=== PATIENT | male | born 1960 | race Caucasian/White ===

== ENCOUNTER 2017-11-09 07:04 | Emergency (ER) | payer OTHER, BC ==
[~2017-11-09] VITALS: Ht 182.9 cm; Wt 97.5 kg
[~2017-11-09 07:04] MED LIST: ASP81TEC PO; ATOR40TA PO; CITA20TA4 PO; HYDR-34 PO; LISI10TA PO; METFOR850T PO; METO50TA7 PO; METR500T PO; MULT-963 PO; NF-MEXI150 PO; SULF1TAB38 PO
--- OUTSIDE RECORDS SUMMARY | 2017-11-09 07:11 | XMS REPORT | Clinical Summary ---
Author Author [facility] Organization [facility] Address Unknown Phone Unavailable Care Team Providers Care Trailer Mechanic Name Role Phone Unverified, Unverified Md PCP Unavailable Source Comments Some departments are not documenting in the electronic medical record. If you do not see the information that you expected, contact Release of Information in the Health Information Management department at [phone] for further assistance in locating additional records.[facility] Allergies No Known Allergies Current Medications Prescription Sig. Disp. Refills Start End Date Status Date aspirin EC 81 mg tablet Take 81 mg by mouth Active daily. atorvastatin (LIPITOR) 40 Take 40 mg by mouth at Active mg tablet bedtime daily. citalopram (CELEXA) 20 mg Take 20 mg by mouth at Active tablet bedtime daily. lisinopril (PRINIVIL; Take 10 mg by mouth Active ZESTRIL) 10 mg tablet daily. vitamins, multiple cap Take 1 Cap by mouth Active daily. metFORMIN (GLUCOPHAGE) Take 850 mg by mouth Active 850 mg tablet twice daily with meals. metoprolol XL (TOPROL XL) Take 50 mg by mouth twice Active 50 mg tablet daily. mexiletine (MEXITIL) 200 Take 1 Cap by mouth three 90 Cap 0 05/27/19 Active mg capsuleIndications: times daily. Need office 16 Palpitations visit for additional refills. Active Problems Problem Noted Date JULIAN (obstructive sleep apnea) 09/20/2012 HTN (hypertension) 09/20/2012 Overview: 07/20/12 Myocardial stress test: fair exercise tolerance; a total of 7 minutes and 51 seconds on the standard Piter Protocol at a total of 10.1 METs; achieving 88% of max predicted HR; frequent PVC's and ventricular couplets were seen during exercise; nondiagnostic EKG changes with exercise which returned to baseline during recovery; diaphragmatic attenuation w/mild decreased uptake involving the whole inferior wall; no significant ischemia noted; prominent LV with diffuse LV hypokinesia and calculated EF of 44% 08/31/12 Cardiac Cath: severe CM with estimated EF of 30% by LV gram; normal coronary arteries with very small nondominant right coronary system Hyperlipemia 09/20/2012 DM (diabetes mellitus) ([facility]) 09/20/2012 Tobacco user 09/20/2012 Palpitations 09/19/2012 Overview: 06/21/12 Holter: Pt was monitored for 24 hrs and 0 minutes. There was a total of 111,629 beats with an avg rate of 77; max BPM was 105 w/minimum BPM 58. There were 0 mins < 50bpm and 0 mins > 120bpm; wide beats totaled 42 representing 0.0% of all beats; wide pairs 0; wide runs: 0; 2 second pause: 0; KATIE runs: 0; total early KATIE were 14984 representing 13.2% of all beats; total beats not analyzed: 174 representing 0.2% of the study. 06/22/12 Holter: Pt was monitored for a total of 47 hrs and 40 minutes; there were a total of 219,417 beats with an avg rate of 77; mx BPM was 111 with a minimum BPM of 58; O mins < 50 and 0 mins > 120 BPM; wide beats totaled 68 representing 0.0% of all beats; 0 wide pairs or runs; 0 pauses; KATIE runs totaled 7; total early KATIE were 59172 representing 12.5% of all beats; total beats not analyzed: 541 representing 0.2% of the study. 09/01/12 Holter: Pt was monitored for 23 hrs and 55 minutes. There were a total of 96,939beats with an avg rate of 70; max BPM was 89, with a minimum BPM of 59; there were 0 mins < 50 bpm and 0 mins > 120 bpm; wide beats totaled 30,030 representing 31% of all beats; wide pairs totaled 52; wide runs 0; pauses 0; KATIE runs totaled 1; total early KATIE were 709 representing 0.7% of all beats; total beats not analyzed was 219 representing < 1% of the study. Cardiomyopathy ([facility]) 09/15/2012 Overview: 03/13/05 Echo: Normal LV size; systolic function is in the lower normal limit w/estimated EF of 50%; mild MR, mild aortic regurgitation; estimated PAP of 20mmHg; frequent PVC's which affected the overall quality of the evaluation of the LV systolic function 07/19/12 Echo: Mild LVH with prominent LV size; systolic function is preserved; estimated EF 50%; LA dilatation (4.4 cm); mild MR and TR; estimated PAP of 15mmHg 09/09/12 Cardiac MRI: 1. Mildly depressed left and right ventricular systolic function with a left ventricular ejection fraction of 49 percent and right ventricular ejection fraction of 39 percent. 2. Moderate left ventricular enlargement. 3. Normal right ventricular size. 4. The thoracic aorta is without evidence of dissection or coarctation. 5. No evidence of delayed hyper-enhancement. 6. On 2009 ARVD Task Force Criteria by MRI there was no evidence of Regional right ventricular akinesia or dyskinesia and the right ventricular ejection fraction is mildly decreased at 39 percent which meets one of the major criteria of the ARVD for the right ventricle. It should be noted that the right ventricular volume indexes were all normal which would be minor criteria. A follow-up MRI in approximately six months to a year can be done to reevaluate right ventricular size and function. It should be noted that the right ventricular ejection fraction is just very mildly depressed at 39 percent but it does meet one of the major criteria for the ARVD Task Force. The other criteria such as right ventricular enlargement or dyskinesia or akinesia were not met. 11/19/15 ECHO [facility]: LA 5.2, EF 45-50%, Normal left ventricular size with mild hypokinesia involving the mid to apical anterior wall, anterior septum. Mild mitral, tricuspid and aortic regurgitation. Estimated pulmonary pressure of 15 mmHg. Family History Medical History Relation Name Comments Other Father heart cath Relation Name Status Comments Father Alive Mother Alive Social History Tobacco Use Types Packs/Day Years Used Date Current Every Day Smoker Cigarettes 0.5 Smokeless Tobacco: Never Used Alcohol Use Drinks/Week oz/Week Comments No Sex Assigned at Date Recorded Not on file Last Filed Vital Signs Vital Sign Reading Time Taken Blood Pressure 148/80 06/21/2013 11:11 AM CDT Pulse 67 06/21/2013 11:11 AM CDT Temperature - - Respiratory Rate - - Oxygen Saturation - - Inhaled Oxygen - - Concentration Weight 102.7 kg (226 lb 6.4 oz) 06/21/2013 11:11 AM CDT Height 185.4 cm (6' 1") 06/21/2013 11:11 AM CDT Body Mass Index 29.87 06/21/2013 11:11 AM CDT Plan of Treatment Health Maintenance Due Date Last Done Comments HEPATITIS C SCREENING 1962 PHYSICAL (COMPREHENSIVE) 1969 EXAM PERTUSSIS VACCINE 1973 HIV SCREENING 1977 TETANUS VACCINE 12/05/1979 COLORECTAL CANCER 2012 SCREENING SHINGLES RECOMBINANT 2012 VACCINE (1 of 2) INFLUENZA VACCINE 12/27/2017 Results Not on filefrom Last 3 Months
--- OUTSIDE RECORDS SUMMARY | 2017-11-09 07:12 | XMS REPORT | Continuity of Care Document ---
Author Author [facility] Organization [facility] Address Unknown Phone Unavailable Allergies Active Description Code Type Severity Reaction Onset Reported/Identified Relationship to Patient Clinical Status Yes No Known Drug Allergies [id number] Drug Allergy Unknown N/A 10/20/2009 Medications There is no data. Problems Date Dx Coded Attending Type Code Diagnosis Diagnosed By 08/31/2012 IVAN POST MD Ot 250.00 DIAB VINAY WO COMPL, TYPE II OR UNSPEC TY 08/31/2012 IVAN POST MD Ot 272.4 HYPERLIPIDEMIA NEC/NOS 08/31/2012 IVAN POST MD Ot 305.1 TOBACCO USE DISORDER 08/31/2012 IVAN POST MD Ot 327.23 OBSTRUCTIVE SLEEP APNEA (ADULT) (PEDIATR 08/31/2012 IVAN POST MD Ot 401.9 HYPERTENSION NOS 08/31/2012 IVAN POST MD Ot 425.4 PRIM CARDIOMYOPATHY NEC 08/31/2012 IVAN POST MD Ot 427.89 CARDIAC DYSRHYTHMIAS NEC 08/31/2012 IVAN POST MD Ot 428.0 CONGESTIVE HEART FAILURE NOS 08/31/2012 IVAN POST MD Ot 428.21 ACUTE SYSTOLIC HEART FAILURE 08/31/2012 IVAN POST MD Ot 794.30 ABN CARDIOVASC STUDY NOS 08/31/2012 IVAN POST MD Ot V58.66 LONG-TERM (CURRENT) USE OF ASPIRIN 08/31/2012 IVAN POST MD Ot V58.69 OTH MED,LT,CURRENT USE 09/19/2012 Ot 785.1 PALPITATIONS 10/15/2012 JESSIE RIOS, SONJA Levy Ot 327.23 OBSTRUCTIVE SLEEP APNEA (ADULT) (PEDIATR 02/09/2014 IVAN POST MD Ot 272.4 02/09/2014 IVAN POST MD Ot 397.0 02/09/2014 IVAN POST MD Ot 401.9 02/09/2014 IVAN POST MD Ot 424.0 02/09/2014 IVAN POST MD Ot 428.0 03/26/2014 Ot 397.0 03/26/2014 Ot 401.9 03/26/2014 Ot 424.0 03/26/2014 Ot 427.69 03/26/2014 Ot 429.3 03/26/2014 Ot 785.1 03/26/2014 Ot 401.9 03/26/2014 Ot 427.69 03/26/2014 Ot 785.1 03/26/2014 IVAN POST MD Ot 427.69 03/26/2014 IVAN POST MD Ot 428.0 03/26/2014 Ot 785.1 03/26/2014 ANI ROMAN Ot 427.31 03/26/2014 ANI ROMAN Ot 428.0 03/26/2014 ANI ROMAN Ot 785.1 03/26/2014 IVAN POST MD Ot 272.4 03/26/2014 IVAN POST MD Ot 397.0 03/26/2014 IVAN POST MD Ot 401.9 03/26/2014 IVAN POST MD Ot 424.0 03/26/2014 IVAN POST MD Ot 428.0 07/06/2014 CATHERINE MARTIN MD Ot 305.1 08/20/2014 Ot 397.0 08/20/2014 Ot 401.9 08/20/2014 Ot 424.0 08/20/2014 Ot 427.69 08/20/2014 Ot 429.3 08/20/2014 Ot 785.1 08/20/2014 Ot 401.9 08/20/2014 Ot 427.69 08/20/2014 Ot 785.1 08/20/2014 IVAN POST MD Ot 427.69 08/20/2014 IVAN POST MD Ot 428.0 08/20/2014 Ot 785.1 08/20/2014 ANI ROMAN Ot 427.31 08/20/2014 ANI ROMAN Ot 428.0 08/20/2014 ANI ROMAN Ot 785.1 08/20/2014 IVAN POST MD Ot 272.4 08/20/2014 IVAN POST MD Ot 397.0 08/20/2014 IVAN POST MD Ot 401.9 08/20/2014 IVAN POST MD Ot 424.0 08/20/2014 IVAN POST MD Ot 428.0 08/20/2014 Ot 789.00 08/20/2014 Ot 786.50 08/20/2014 Ot 789.00 08/20/2014 CATHERINE MARTIN MD Ot 305.1 11/19/2015 Ot 397.0 TRICUSPID VALVE DISEASE 11/19/2015 Ot 401.9 HYPERTENSION NOS 11/19/2015 Ot 424.0 MITRAL VALVE DISORDER 11/19/2015 Ot 427.69 PREMATURE BEATS NEC 11/19/2015 Ot 429.3 CARDIOMEGALY 11/19/2015 Ot 785.1 PALPITATIONS 11/19/2015 Ot 401.9 HYPERTENSION NOS 11/19/2015 Ot 427.69 PREMATURE BEATS NEC 11/19/2015 Ot 785.1 PALPITATIONS 11/19/2015 IVAN POST MD Ot 427.69 PREMATURE BEATS NEC 11/19/2015 IVAN POST MD Ot 428.0 CONGESTIVE HEART FAILURE NOS 11/19/2015 Ot 785.1 PALPITATIONS 11/19/2015 ANI ROMAN Ot 427.31 ATRIAL FIBRILLATION 11/19/2015 ANI ROMAN Ot 428.0 CONGESTIVE HEART FAILURE NOS 11/19/2015 ANI ROMAN Ot 785.1 PALPITATIONS 11/19/2015 IVAN POST MD Ot 272.4 HYPERLIPIDEMIA NEC/NOS 11/19/2015 IVAN POST MD Ot 397.0 TRICUSPID VALVE DISEASE 11/19/2015 IVAN POST MD Ot 401.9 HYPERTENSION NOS 11/19/2015 IVAN POST MD Ot 424.0 MITRAL VALVE DISORDER 11/19/2015 IVAN POST MD Ot 428.0 CONGESTIVE HEART FAILURE NOS 11/19/2015 Ot 789.00 ABDOMINAL PAIN, UNSPECIFIED SITE 11/19/2015 Ot 786.50 CHEST PAIN NOS 11/19/2015 Ot 789.00 ABDOMINAL PAIN, UNSPECIFIED SITE 11/19/2015 CATHERINE MARTIN MD Ot 305.1 TOBACCO USE DISORDER 11/20/2015 IVAN POST MD Ot 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 11/20/2015 IVAN POST MD Ot E78.2 MIXED HYPERLIPIDEMIA 11/20/2015 IVAN POST MD Ot I10 ESSENTIAL (PRIMARY) HYPERTENSION 11/20/2015 IVAN POST MD Ot I49.9 CARDIAC ARRHYTHMIA, UNSPECIFIED 11/20/2015 IVAN POST MD Ot I50.22 CHRONIC SYSTOLIC (CONGESTIVE) HEART FAIL 11/27/2015 Ot 397.0 TRICUSPID VALVE DISEASE 11/27/2015 Ot 401.9 HYPERTENSION NOS 11/27/2015 Ot 424.0 MITRAL VALVE DISORDER 11/27/2015 Ot 427.69 PREMATURE BEATS NEC 11/27/2015 Ot 429.3 CARDIOMEGALY 11/27/2015 Ot 785.1 PALPITATIONS 11/27/2015 Ot 401.9 HYPERTENSION NOS 11/27/2015 Ot 427.69 PREMATURE BEATS NEC 11/27/2015 Ot 785.1 PALPITATIONS 11/27/2015 IVAN POST MD Ot 427.69 PREMATURE BEATS NEC 11/27/2015 IVAN POST MD Ot 428.0 CONGESTIVE HEART FAILURE NOS 11/27/2015 Ot 785.1 PALPITATIONS 11/27/2015 ANI ROMAN Ot 427.31 ATRIAL FIBRILLATION 11/27/2015 ANI ROMAN Ot 428.0 CONGESTIVE HEART FAILURE NOS 11/27/2015 ANI ROMAN Ot 785.1 PALPITATIONS 11/27/2015 IVAN POST MD Ot 272.4 HYPERLIPIDEMIA NEC/NOS 11/27/2015 IVAN POST MD Ot 397.0 TRICUSPID VALVE DISEASE 11/27/2015 IVAN POST MD Ot 401.9 HYPERTENSION NOS 11/27/2015 IVAN POST MD Ot 424.0 MITRAL VALVE DISORDER 11/27/2015 IVAN POST MD Ot 428.0 CONGESTIVE HEART FAILURE NOS 11/27/2015 Ot 789.00 ABDOMINAL PAIN, UNSPECIFIED SITE 11/27/2015 Ot 786.50 CHEST PAIN NOS 11/27/2015 Ot 789.00 ABDOMINAL PAIN, UNSPECIFIED SITE 11/27/2015 MARIO RIOS, CATHERINE Ochoa Ot 305.1 TOBACCO USE DISORDER 11/27/2015 IVAN POST MD Ot 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 11/27/2015 IVAN POST MD Ot E78.2 MIXED HYPERLIPIDEMIA 11/27/2015 IVAN POST MD Ot I10 ESSENTIAL (PRIMARY) HYPERTENSION 11/27/2015 IVAN POST MD Ot I49.9 CARDIAC ARRHYTHMIA, UNSPECIFIED 11/27/2015 IVAN POST MD Ot I50.22 CHRONIC SYSTOLIC (CONGESTIVE) HEART FAIL 11/28/2015 IVAN POST MD Ot 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 11/28/2015 IVAN POST MD Ot E78.2 MIXED HYPERLIPIDEMIA 11/28/2015 IVAN POST MD Ot I10 ESSENTIAL (PRIMARY) HYPERTENSION 11/28/2015 IVAN POST MD Ot I49.9 CARDIAC ARRHYTHMIA, UNSPECIFIED 11/28/2015 IVAN POST MD Ot I50.22 CHRONIC SYSTOLIC (CONGESTIVE) HEART FAIL 12/10/2015 Ot 397.0 TRICUSPID VALVE DISEASE 12/10/2015 Ot 401.9 HYPERTENSION NOS 12/10/2015 Ot 424.0 MITRAL VALVE DISORDER 12/10/2015 Ot 427.69 PREMATURE BEATS NEC 12/10/2015 Ot 429.3 CARDIOMEGALY 12/10/2015 Ot 785.1 PALPITATIONS 12/10/2015 Ot 401.9 HYPERTENSION NOS 12/10/2015 Ot 427.69 PREMATURE BEATS NEC 12/10/2015 Ot 785.1 PALPITATIONS 12/10/2015 IVAN POST MD Ot 427.69 PREMATURE BEATS NEC 12/10/2015 IVAN POST MD Ot 428.0 CONGESTIVE HEART FAILURE NOS 12/10/2015 Ot 785.1 PALPITATIONS 12/10/2015 ANI ROMAN Ot 427.31 ATRIAL FIBRILLATION 12/10/2015 ANI ROMAN Ot 428.0 CONGESTIVE HEART FAILURE NOS 12/10/2015 ANI ROMAN Ot 785.1 PALPITATIONS 12/10/2015 IVAN POST MD Ot 272.4 HYPERLIPIDEMIA NEC/NOS 12/10/2015 IVAN POST MD Ot 397.0 TRICUSPID VALVE DISEASE 12/10/2015 IVAN POST MD Ot 401.9 HYPERTENSION NOS 12/10/2015 IVAN POST MD Ot 424.0 MITRAL VALVE DISORDER 12/10/2015 IVAN POST MD Ot 428.0 CONGESTIVE HEART FAILURE NOS 12/10/2015 Ot 789.00 ABDOMINAL PAIN, UNSPECIFIED SITE 12/10/2015 Ot 786.50 CHEST PAIN NOS 12/10/2015 Ot 789.00 ABDOMINAL PAIN, UNSPECIFIED SITE 12/10/2015 MARIO RIOS, CATHERINE Ochoa Ot 305.1 TOBACCO USE DISORDER 12/10/2015 IVAN POST MD Ot 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 12/10/2015 IVAN POST MD Ot E78.2 MIXED HYPERLIPIDEMIA 12/10/2015 IVAN POST MD Ot I10 ESSENTIAL (PRIMARY) HYPERTENSION 12/10/2015 IVAN POST MD Ot I49.9 CARDIAC ARRHYTHMIA, UNSPECIFIED 12/10/2015 IVAN POST MD Ot I50.22 CHRONIC SYSTOLIC (CONGESTIVE) HEART FAIL 03/13/2016 Ot 397.0 TRICUSPID VALVE DISEASE 03/13/2016 Ot 401.9 HYPERTENSION NOS 03/13/2016 Ot 424.0 MITRAL VALVE DISORDER 03/13/2016 Ot 427.69 PREMATURE BEATS NEC 03/13/2016 Ot 429.3 CARDIOMEGALY 03/13/2016 Ot 785.1 PALPITATIONS 03/13/2016 Ot 401.9 HYPERTENSION NOS 03/13/2016 Ot 427.69 PREMATURE BEATS NEC 03/13/2016 Ot 785.1 PALPITATIONS 03/13/2016 IVAN POST MD Ot 427.69 PREMATURE BEATS NEC 03/13/2016 IVAN POST MD Ot 428.0 CONGESTIVE HEART FAILURE NOS 03/13/2016 Ot 785.1 PALPITATIONS 03/13/2016 ANI ROMAN Ot 427.31 ATRIAL FIBRILLATION 03/13/2016 ANI ROMAN Ot 428.0 CONGESTIVE HEART FAILURE NOS 03/13/2016 ANI ROMAN Ot 785.1 PALPITATIONS 03/13/2016 IVAN POST MD Ot 272.4 HYPERLIPIDEMIA NEC/NOS 03/13/2016 IVAN POST MD Ot 397.0 TRICUSPID VALVE DISEASE 03/13/2016 IVAN POST MD Ot 401.9 HYPERTENSION NOS 03/13/2016 IVAN POST MD Ot 424.0 MITRAL VALVE DISORDER 03/13/2016 IVAN POST MD Ot 428.0 CONGESTIVE HEART FAILURE NOS 03/13/2016 Ot 789.00 ABDOMINAL PAIN, UNSPECIFIED SITE 03/13/2016 Ot 786.50 CHEST PAIN NOS 03/13/2016 Ot 789.00 ABDOMINAL PAIN, UNSPECIFIED SITE 03/13/2016 MARIO RIOS, CATHERINE Ochoa Ot 305.1 TOBACCO USE DISORDER 03/13/2016 IVAN POST MD Ot 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 03/13/2016 IVAN POST MD Ot E78.2 MIXED HYPERLIPIDEMIA 03/13/2016 IVAN POST MD Ot I10 ESSENTIAL (PRIMARY) HYPERTENSION 03/13/2016 IVAN POST MD Ot I49.9 CARDIAC ARRHYTHMIA, UNSPECIFIED 03/13/2016 IVAN POST MD Ot I50.22 CHRONIC SYSTOLIC (CONGESTIVE) HEART FAIL 02/10/2017 Ot 397.0 TRICUSPID VALVE DISEASE 02/10/2017 Ot 401.9 HYPERTENSION NOS 02/10/2017 Ot 424.0 MITRAL VALVE DISORDER 02/10/2017 Ot 427.69 PREMATURE BEATS NEC 02/10/2017 Ot 429.3 CARDIOMEGALY 02/10/2017 Ot 785.1 PALPITATIONS 02/10/2017 Ot 401.9 HYPERTENSION NOS 02/10/2017 Ot 427.69 PREMATURE BEATS NEC 02/10/2017 Ot 785.1 PALPITATIONS 02/10/2017 IVAN POST MD Ot 427.69 PREMATURE BEATS NEC 02/10/2017 IVAN POST MD Ot 428.0 CONGESTIVE HEART FAILURE NOS 02/10/2017 Ot 785.1 PALPITATIONS 02/10/2017 ANI ROMAN Ot 427.31 ATRIAL FIBRILLATION 02/10/2017 ANI ROMAN Ot 428.0 CONGESTIVE HEART FAILURE NOS 02/10/2017 ANI ROMAN Ot 785.1 PALPITATIONS 02/10/2017 IVAN POST MD Ot 272.4 HYPERLIPIDEMIA NEC/NOS 02/10/2017 IVAN POST MD Ot 397.0 TRICUSPID VALVE DISEASE 02/10/2017 IVAN POST MD Ot 401.9 HYPERTENSION NOS 02/10/2017 IVAN POST MD Ot 424.0 MITRAL VALVE DISORDER 02/10/2017 IVAN POST MD Ot 428.0 CONGESTIVE HEART FAILURE NOS 02/10/2017 Ot 789.00 ABDOMINAL PAIN, UNSPECIFIED SITE 02/10/2017 Ot 786.50 CHEST PAIN NOS 02/10/2017 Ot 789.00 ABDOMINAL PAIN, UNSPECIFIED SITE 02/10/2017 MARIO RIOS, CATHERINE Ochoa Ot 305.1 TOBACCO USE DISORDER 02/10/2017 IVAN POST MD Ot 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 02/10/2017 IVAN POST MD Ot E78.2 MIXED HYPERLIPIDEMIA 02/10/2017 IVAN POST MD Ot I10 ESSENTIAL (PRIMARY) HYPERTENSION 02/10/2017 IVAN POST MD Ot I49.9 CARDIAC ARRHYTHMIA, UNSPECIFIED 02/10/2017 IVAN POST MD Ot I50.22 CHRONIC SYSTOLIC (CONGESTIVE) HEART FAIL 04/09/2017 Ot 397.0 TRICUSPID VALVE DISEASE 04/09/2017 Ot 401.9 HYPERTENSION NOS 04/09/2017 Ot 424.0 MITRAL VALVE DISORDER 04/09/2017 Ot 427.69 PREMATURE BEATS NEC 04/09/2017 Ot 429.3 CARDIOMEGALY 04/09/2017 Ot 785.1 PALPITATIONS 04/09/2017 Ot 401.9 HYPERTENSION NOS 04/09/2017 Ot 427.69 PREMATURE BEATS NEC 04/09/2017 Ot 785.1 PALPITATIONS 04/09/2017 IVAN POST MD Ot 427.69 PREMATURE BEATS NEC 04/09/2017 IVAN POST MD Ot 428.0 CONGESTIVE HEART FAILURE NOS 04/09/2017 Ot 785.1 PALPITATIONS 04/09/2017 ANI ROMAN Ot 427.31 ATRIAL FIBRILLATION 04/09/2017 ANI ROMAN Ot 428.0 CONGESTIVE HEART FAILURE NOS 04/09/2017 ANI ROMAN Ot 785.1 PALPITATIONS 04/09/2017 IVAN POST MD Ot 272.4 HYPERLIPIDEMIA NEC/NOS 04/09/2017 IVAN POST MD Ot 397.0 TRICUSPID VALVE DISEASE 04/09/2017 IVAN POST MD Ot 401.9 HYPERTENSION NOS 04/09/2017 IVAN POST MD Ot 424.0 MITRAL VALVE DISORDER 04/09/2017 IVAN POST MD Ot 428.0 CONGESTIVE HEART FAILURE NOS 04/09/2017 Ot 789.00 ABDOMINAL PAIN, UNSPECIFIED SITE 04/09/2017 Ot 786.50 CHEST PAIN NOS 04/09/2017 Ot 789.00 ABDOMINAL PAIN, UNSPECIFIED SITE 04/09/2017 MARIO RIOS, CATHERINE Ochoa Ot 305.1 TOBACCO USE DISORDER 04/09/2017 IVAN POST MD Ot 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 04/09/2017 IVAN POST MD Ot E78.2 MIXED HYPERLIPIDEMIA 04/09/2017 IVAN POST MD Ot I10 ESSENTIAL (PRIMARY) HYPERTENSION 04/09/2017 IVAN POST MD Ot I49.9 CARDIAC ARRHYTHMIA, UNSPECIFIED 04/09/2017 IVAN POST MD Ot I50.22 CHRONIC SYSTOLIC (CONGESTIVE) HEART FAIL 07/23/2017 Ot 397.0 TRICUSPID VALVE DISEASE 07/23/2017 Ot 401.9 HYPERTENSION NOS 07/23/2017 Ot 424.0 MITRAL VALVE DISORDER 07/23/2017 Ot 427.69 PREMATURE BEATS NEC 07/23/2017 Ot 429.3 CARDIOMEGALY 07/23/2017 Ot 785.1 PALPITATIONS 07/23/2017 Ot 401.9 HYPERTENSION NOS 07/23/2017 Ot 427.69 PREMATURE BEATS NEC 07/23/2017 Ot 785.1 PALPITATIONS 07/23/2017 IVAN POST MD Ot 427.69 PREMATURE BEATS NEC 07/23/2017 IVAN POST MD Ot 428.0 CONGESTIVE HEART FAILURE NOS 07/23/2017 Ot 785.1 PALPITATIONS 07/23/2017 ANI ROMAN Ot 427.31 ATRIAL FIBRILLATION 07/23/2017 ANI ROMAN Ot 428.0 CONGESTIVE HEART FAILURE NOS 07/23/2017 ANI ROMAN Ot 785.1 PALPITATIONS 07/23/2017 IVAN POST MD Ot 272.4 HYPERLIPIDEMIA NEC/NOS 07/23/2017 IVAN POST MD Ot 397.0 TRICUSPID VALVE DISEASE 07/23/2017 IVAN POST MD Ot 401.9 HYPERTENSION NOS 07/23/2017 IVAN POST MD Ot 424.0 MITRAL VALVE DISORDER 07/23/2017 IVAN POST MD Ot 428.0 CONGESTIVE HEART FAILURE NOS 07/23/2017 Ot 789.00 ABDOMINAL PAIN, UNSPECIFIED SITE 07/23/2017 Ot 786.50 CHEST PAIN NOS 07/23/2017 Ot 789.00 ABDOMINAL PAIN, UNSPECIFIED SITE 07/23/2017 CATHERINE MARTIN MD Ot 305.1 TOBACCO USE DISORDER 07/23/2017 IVAN POST MD Ot 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 07/23/2017 IVAN POST MD Ot E78.2 MIXED HYPERLIPIDEMIA 07/23/2017 IVAN POST MD Ot I10 ESSENTIAL (PRIMARY) HYPERTENSION 07/23/2017 IVAN POST MD Ot I49.9 CARDIAC ARRHYTHMIA, UNSPECIFIED 07/23/2017 IVAN POST MD Ot I50.22 CHRONIC SYSTOLIC (CONGESTIVE) HEART FAIL Procedures There is no data. Results There is no data. Encounters ACCT No. Visit Date/Time Discharge Status Pt. Type Provider Facility Loc./Unit Complaint [id number] 11/19/2015 10:43:00 11/19/2015 23:59:59 CLS Outpatient IVAN POST MD [facility] CARD CHF,HTN,HLP, PALPITATIONS [id number] 06/22/2014 13:51:00 06/22/2014 23:59:59 CLS Outpatient CATHERINE MARTIN MD [facility] RT TOBACCOISM, [id number] 01/26/2014 08:48:00 01/26/2014 23:59:59 CLS Outpatient IVAN POST MD [facility] CARD CHF,COPD,HTN,HLP [id number] 10/24/2012 10:00:00 10/24/2012 23:59:59 CLS Outpatient ANI ROMAN [facility] CARD AFIB, PALPITATIONS [id number] 10/14/2012 20:13:00 10/15/2012 05:10:00 DIS Outpatient SONJA ROMAN MD [facility] SLEEP JULIAN [id number] 09/01/2012 12:59:00 09/01/2012 23:59:59 CLS Outpatient IVAN POST MD [facility] CARD PVC,CHF [id number] 08/31/2012 11:38:00 08/31/2012 19:45:00 DIS Outpatient IVAN POST MD [facility] CHEST PAIN,PALPITATIONS, HTN,HLP,TOBACCOISM, [id number] 05/23/2014 08:11:00 Document Registration [id number] 05/22/2014 15:30:00 Document Registration [id number] 09/20/2012 08:00:00 Document Registration [id number] 07/20/2012 11:41:00 Document Registration [id number] 07/19/2012 08:52:00 Document Registration [id number] 06/21/2012 08:27:00 Document Registration
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
[2017-11-09] MEDS ORDERED: CYCL10TA9 PO (08:23)
[2017-11-09 08:55] VITALS: BP 135/76
== END 2017-11-09 08:55 | disposition home or self-care (01) ==
LOC: EDUNIT# 07:04 → ER 07:06
DX: S39.012A Strain of muscle, fascia and tendon of lower back, initial encounter (principal); S16.1XXA Strain of muscle, fascia and tendon at neck level, initial encounter; S80.02XA Contusion of left knee, initial encounter; I10 Essential (primary) hypertension; E11.9 Type 2 diabetes mellitus without complications; R40.2142 Coma scale, eyes open, spontaneous, at arrival to emergency department; R40.2252 Coma scale, best verbal response, oriented, at arrival to emergency department; R40.2362 Coma scale, best motor response, obeys commands, at arrival to emergency department; F17.210 Nicotine dependence, cigarettes, uncomplicated; Z79.82 Long term (current) use of aspirin; Z79.84 Long term (current) use of oral hypoglycemic drugs; X50.0XXA Overexertion from strenuous movement or load, initial encounter
CPT/HCPCS: 99282

== ENCOUNTER → 2017-12-10 | Outpatient (CLI) | payer BC, OTHER ==
[~2017-12-10] MED LIST changes: +CYCL10TA9 PO; +IOHEXOL 350 MG/ML 100 ML (OMNIPAQUE 350) VIAL IV ONE; +NS 250 ML (IVPB) BAG IV ONE
[2017-12-10 09:04] LABS: BUN/CREATININE RATIO 14; CREATININE SERUM 1.02 MG/DL (0.60-1.30); GFR ESTIMATED > 60
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
== END ==
LOC: RAD 08:31
PROVIDERS: ATTEND Internal Medicine
DX: R51 Headache (principal); R42 Dizziness and giddiness; V89.2XXA Person injured in unspecified motor-vehicle accident, traffic, initial encounter
CPT/HCPCS: 36415; 70470; 82565; 84520

== ENCOUNTER → 2017-12-23 | Outpatient (CLI) | payer OTHER, BC ==
[~2017-12-23] MED LIST changes: -IOHEXOL 350 MG/ML 100 ML (OMNIPAQUE 350) VIAL IV ONE; -NS 250 ML (IVPB) BAG IV ONE
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
== END ==
LOC: RAD 14:14
PROVIDERS: ATTEND Nurse Practitioner
DX: M46.86 Other specified inflammatory spondylopathies, lumbar region (principal); M47.814 Spondylosis without myelopathy or radiculopathy, thoracic region; V89.2XXA Person injured in unspecified motor-vehicle accident, traffic, initial encounter
CPT/HCPCS: 72070; 72100

== ENCOUNTER → 2018-08-01 | Outpatient (CLI) | payer BC, OTHER ==
[~2018-08-01] VITALS: Ht 182.9 cm; Wt 96.2 kg
[~2018-08-01] MED LIST changes: +CATHETER FLUSH 10 ML SYR IV PRN; +REGADENOSON 0.4 MG/5 ML SYR (LEXISCAN) IV ONE
--- NOTE | 2018-08-01 12:55 | STRESS TEST ---
DATE OF SERVICE: 08/01/2018 LEXISCAN MYOVIEW STRESS TEST REPORT REFERRING PHYSICIAN: Dr. Soares. Baseline heart rate is 62. Baseline blood pressure 135/85. Baseline EKG is sinus rhythm with no ischemic changes. In summary, the patient received 10.95 mCi of technetium-99 Myoview and the resting images were obtained. Then, the patient received 0.4 mg of Lexiscan followed by 31.8 mCi of technetium-99 Myoview. Throughout the test, there were no EKG changes. The resting and stress images were reviewed and compared in the short axis, horizontal long axis, and vertical long axis views. Review of the images showed good radiotracer uptake with no significant ischemia or infarction on SPECT images. On the gated images, the left ventricle appeared to be prominent with diffuse left ventricular hypokinesia, calculated ejection fraction 41%. CONCLUSION: 1. The patient tolerated Lexiscan well. 2. No ischemia or infarction on SPECT images. 3. Prominent left ventricle with diffuse left ventricular hypokinesia with calculated ejection fraction 41%. Job ID: [id number] DocumentID: [id number] Dictated Date: 08/01/2018 11:27:33 Fish Flipper Date: 08/01/2018 12:54:45 Dictated By: IVAN POST MD
== END ==
LOC: CARD 07:04
PROVIDERS: ATTEND Physician Assistant
DX: I10 Essential (primary) hypertension (principal); I34.0 Nonrheumatic mitral (valve) insufficiency; R00.2 Palpitations; J44.9 Chronic obstructive pulmonary disease, unspecified; G47.33 Obstructive sleep apnea (adult) (pediatric)
CPT/HCPCS: 78452; 93017

== ENCOUNTER → 2018-08-04 | Outpatient (CLI) | payer BC, OTHER ==
[~2018-08-04] MED LIST changes: -CATHETER FLUSH 10 ML SYR IV PRN; -REGADENOSON 0.4 MG/5 ML SYR (LEXISCAN) IV ONE
== END ==
LOC: CARD 08:10
PROVIDERS: ATTEND Physician Assistant
DX: J44.9 Chronic obstructive pulmonary disease, unspecified (principal); I11.9 Hypertensive heart disease without heart failure; I08.0 Rheumatic disorders of both mitral and aortic valves; G47.33 Obstructive sleep apnea (adult) (pediatric); R00.2 Palpitations
CPT/HCPCS: 93306